=== PATIENT | male | born 1990 | race African-American/Black ===

== ENCOUNTER 2017-11-08 11:05 | Emergency (ER) | payer SELFPAY ==
[~2017-11-08] VITALS: Ht 198.1 cm; Wt 127.0 kg
[2017-11-08] MEDS ORDERED: PROMETHAZINE HCL (IM) 25 MG/ML VIAL IV STA (11:13)
[2017-11-08] MEDS ORDERED: SODIUM CHLORIDE 0.9% 1000ML 1,000 ML IV STA (11:13)
[2017-11-08] MEDS ORDERED: DICYCLOMINE HCL 20 MG/2 ML VIAL IM ONE (11:15)
[2017-11-08] MEDS ORDERED: SODIUM CHLORIDE 0.9% 50ML 50 ML ONE (12:25)
[2017-11-08 12:47] LABS: BASOPHILS % 0.2 % (0.0-1.0); EOSINOPHILS % 0.1 % (0.0-6.0); HEMATOCRIT 47.7 % (38.2-49.6); HEMOGLOBIN 16.6 g/dL (14.0-18.0); LYMPHOCYTES # (AUTO) 1.6 (1.0-3.2); LYMPHOCYTES % 11.2 % (18.0-39.1); MEAN CORPUSCULAR HEMOGLOBIN 31.7 pg (28-32); MEAN CORPUSCULAR HGB CONC 34.8 g/dL (31-35); MONOCYTES # (AUTO) 0.4 (0.2-0.8); NEUTROPHILS # (AUTO) 12.2 (2.1-6.9); NEUTROPHILS % 85.1 % (38.7-80.0); PLATELET COUNT 279 x10e3/uL (140-360); RED BLOOD COUNT 5.24 x10e6/uL (4.3-5.7); RED CELL DISTRIBUTION WIDTH 13.6 % (11.7-14.4)
[2017-11-08 13:05] LABS: ALANINE AMINOTRANSFERASE 30 IU/L (0-55); ALBUMIN 4.3 g/dL (3.5-5.0); ALKALINE PHOSPHATASE 73 IU/L (40-150); AMYLASE 53 U/L (25-125); ANION GAP 16.4 mmol/L (8-16); BLOOD UREA NITROGEN 7 mg/dL (7-26); BUN/CREATININE RATIO 7 (6-25); CALCIUM 10.5 mg/dL (8.4-10.2); CARBON DIOXIDE 26 mmol/L (22-29); CHLORIDE 105 mmol/L (98-107); CREATININE, SERUM 1.03 mg/dL (0.72-1.25); EST GLOMERULAR FILTRATION RATE > 60 ML/MIN (60-); GLUCOSE 107 mg/dL (74-118); LIPASE 22 U/L (8-78); POTASSIUM 4.4 mmol/L (3.5-5.1); SODIUM 143 mmol/L (136-145)
[2017-11-08 14:19] VITALS: BP 110/72
== END 2017-11-08 14:36 | disposition home or self-care (01) ==
LOC: ER 11:05
DX: R10.13 Epigastric pain (principal); R11.2 Nausea with vomiting, unspecified; K29.00 Acute gastritis without bleeding
CPT/HCPCS: 36415; 80053; 82150; 83690; 85025; 99284; J0500; J2550; J7030